=== PATIENT | male | born 1955 | race African-American/Black ===

== ENCOUNTER → 2017-07-23 | Outpatient (CLI) | payer OTHER ==
[~2017-07-23] MED LIST: CENTRUM SILVER PO; DICLOFENAC PO; FISH OIL PO; LOTREL 10/20 MG1 CAP PO; TYLOX1 CAP 5/50 PO
[2017-07-23 19:27] LABS: CHOLESTEROL 196 mg/dL (0-200); HDL CHOLESTEROL 32 mg/dL (29-75); LDL CHOLESTEROL 115 mg/dL (-130); LDL/HDL RATIO 4 RATIO (0-4); TRIGLYCERIDES 246 mg/dL (10-160)
== END | disposition home or self-care (01) ==
LOC: SLAB 18:31
PROVIDERS: Internal Medicine
DX: E11.9 Type 2 diabetes mellitus without complications (principal)
CPT/HCPCS: 36415; 80061; 83036